=== PATIENT | female | born 1950 | race Caucasian/White ===

== ENCOUNTER 2018-07-30 00:26 | Outpatient (CLI) | payer MEDICARE, BC, SELFPAY ==
--- NOTE | 2018-07-30 13:22 | DI.MAMMO_ITS ---
SYMPTOMS/DIAGNOSIS: SCREENING, Z12.31 MAMMOGRAM: Mammograms were interpreted according to the usual protocol including computer analysis with CAD system, tomosynthesis and C view imaging. The breasts are of moderate density with fairly symmetrical distribution of fibroglandular tissue. No dominant mass or clumped microcalcification is identified in either breast. The current examination is compared with previous examinations including January 2017 and there has been no gross interval change in appearance in comparison with the previous studies. CONCLUSION: No specific evidence of malignancy at this time. Routine screening examinations are suggested at yearly intervals in this age group according to the ACS/ACR guidelines. Category I. Breast density Category B. MQSA ASSESSMENT OF FINDINGS: Negative. Category 1. Patient will receive a letter notifying them of these results. BI-RADS category B. There are scattered areas of fibroglandular density.
== END 2018-07-30 00:46 ==
PROVIDERS: PCP Nurse Practitioner Family; Visit Provider Nurse Practitioner Family
DX: Z12.31 Encounter for screening mammogram for malignant neoplasm of breast (principal)
CPT/HCPCS: 77063; 77067

== ENCOUNTER → 2018-08-02 09:17 | Outpatient (BNVA) | payer MEDICARE, BC, SELFPAY | PROVIDERS: PCP Nurse Practitioner Family; Referring Provider Nurse Practitioner Family; Visit Provider Student in an Organized Health Care Education/Training Program | DX: M75.101 Unspecified rotator cuff tear or rupture of right shoulder, not specified as traumatic (principal) | CPT/HCPCS: 99202 ==

== ENCOUNTER 2021-05-27 16:42 | Outpatient (REF) | payer MEDICARE, SELFPAY ==
[2021-05-27 15:21] LABS: HCT 39.8 % (36.0-46.0); HGB 12.9 g/dL (11.2-15.7); MCH 30.9 pg (27.0-33.0); MCHC 32.4 % (32.0-36.0); MCV 95.2 fL (80-95); MPV 9.3 fL (8.0-11.0); Platelet Count 315 10^3/uL (130-400); RBC 4.18 10^6/uL (3.93-5.22); RDW 12.8 % (11.7-14.6); RDW-SD 45.1 fL; WBC 5.66 10^3/uL (4.4-10.8)
[2021-05-27 15:53] LABS: ALT 32 U/L (14-59); AST 22 U/L (15-37); Anion Gap 9.4 mmol/L (3-11); BUN 16 mg/dL (7-18); CO2 26.6 mmol/L (21.0-32.0); CREATININE 0.9 mg/dL (0.55-1.02); Calcium 9.1 mg/dL (8.5-10.1); Calculated LDL 128 mg/dL (<100); Chloride 104 mmol/L (98-107); Cholesterol 216 mg/dL (<200); Glucose 88 mg/dL (74-106); HDL Cholesterol 74 mg/dL (40-60); Potassium 4.9 mmol/L (3.5-5.1); Sodium 140 mmol/L (136-145); Triglyceride 73 mg/dL (<150)
== END 2021-05-27 16:43 | disposition home or self-care (01) ==
LOC: NCHCN 16:42
PROVIDERS: PCP Nurse Practitioner Family; Visit Provider Nurse Practitioner Family
DX: Z78.0 Asymptomatic menopausal state (principal); K57.90 Diverticulosis of intestine, part unspecified, without perforation or abscess without bleeding; R03.0 Elevated blood-pressure reading, without diagnosis of hypertension; Z13.220 Encounter for screening for lipoid disorders
CPT/HCPCS: 80048; 80061; 85027; 84450; 84460

== ENCOUNTER 2021-07-11 02:16 | Outpatient (CLI) | payer MEDICARE, SELFPAY ==
--- NOTE | 2021-07-11 | DI.MAMMO_ITS ---
Exam(s) MAMMO SCREENING EXAM: MAMMO SCREENING CLINICAL HISTORY: SCREENING, Z12.31 TECHNIQUE: Bilateral full field digital CC and MLO mammographic images were obtained with 3D tomosyn thesis and utilizing computer aided detection (CAD). COMPARISON: Available for comparison. FINDINGS: Masses/Architectural Distortion: None seen. Microcalcifications: No suspicious pleomorphic-type are seen. Skin Thickening/Nipple Retraction: None. IMPRESSION: 1. No significant interval change with no specific features of malignancy noted. 2. Unless there is more urgent need, screening mammography is recommended, as per [employer] guidelines. BI-RADS Category 1 - Negative Breast Density - Category B - Scattered areas of fibroglandular density Breast density category C or D implies that the patient has dense breast tissue. Dense breast tissue is very common and is not abnormal but dense breast tissue can make it harder to find cancer on a ma mmogram. Also, dense breast tissue may increase their breast cancer risk. This information about the result of the mammogram report was provided to the patient to raise their awareness. Use this report when you speak with the patient about their risks for breast cancer, which includes their family hist ory. At that time, you may recommend for more screening tests (Ultrasound or MRI) as they might be us eful based on their risk. A negative radiographic report should not delay biopsy if a dominant or clinically suspicious mass is present. Up to ten percent of cancers are not identified on mammography. A negative report may reinforce clinical impression. Adenosis and dense breasts may obscure an underlying neoplasm. False positive reports average 6 to 10%. Patient will receive a letter notifying them of these results.
--- NOTE | 2021-07-11 | DI.DEXA_ITS ---
Exam(s) XR DEXA BONE DENSITY W/WO JADEN EXAM: XR DEXA BONE DENSITY W/WO JADEN CLINICAL HISTORY: MENOPAUSAL, Z78.0 TECHNIQUE: COMPARISON: Comparison examination is 06/04/2015. FINDINGS: Lateral Spine Image: Unremarkable. No compression deformities identified. Left hip: Total T-Score: 0.6. This compares to 0.8 on the prior examination. Total Z-Score: 2.1 T- and Z-scores: Within normal limits. Lumbar Spine: Total T-Score: -0.7. This compares to -0.8 on the prior examination. Total Z-Score: 1.5 T- and Z-scores: Within normal limits. IMPRESSION: No evidence of osteoporosis in the lumbar spine or left hip.
== END 2021-07-11 02:36 ==
PROVIDERS: PCP Nurse Practitioner Family; Visit Provider Nurse Practitioner Family
DX: Z12.31 Encounter for screening mammogram for malignant neoplasm of breast (principal); Z13.820 Encounter for screening for osteoporosis
CPT/HCPCS: 77063; 77067; 77080

== ENCOUNTER 2023-02-05 16:12 | Outpatient (REF) | payer MEDICARE, SELFPAY ==
[2023-02-05 21:01] LABS: HCT 39.6 % (36.0-46.0); MCHC 32.8 % (32.0-36.0); MCV 92 fL (80-95); MPV 9.3 fL (8.0-11.0); Platelet Count 387 10^3/uL (130-400); RBC 4.33 10^6/uL (3.93-5.22); RDW 12.4 % (11.7-14.6); RDW-SD 41.9 fL; WBC 8.63 10^3/uL (4.4-10.8)
[2023-02-05 21:17] LABS: ALT 26 U/L (14-59); AST 19 U/L (15-37); Albumin 4.1 g/dL (3.4-5.0); Alkaline Phosphatase 80 U/L (46-116); Anion Gap 7.9 mmol/L (3-11); BUN 14 mg/dL (7-18); Bilirubin, Total 0.6 mg/dL (0.2-1.0); CO2 29.1 mmol/L (21.0-32.0); CREATININE 0.8 mg/dL (0.55-1.02); Calcium 10.3 mg/dL (8.5-10.1); Chloride 102 mmol/L (98-107); Estimated GFR 78.24 (mL/min/1.73m2); Glucose 97 mg/dL (74-106); Sodium 139 mmol/L (136-145); Total Protein 7.9 g/dL (6.4-8.2)
== END 2023-02-05 16:13 | disposition home or self-care (01) ==
LOC: NCHCN 16:12
PROVIDERS: PCP Nurse Practitioner Family; Visit Provider Nurse Practitioner Family
DX: Z00.00 Encounter for general adult medical examination without abnormal findings (principal)
CPT/HCPCS: 80053; 85027

== ENCOUNTER → 2023-04-22 02:18 | Outpatient (CLI) | payer MEDICARE, SELFPAY ==
--- NOTE | 2023-04-22 | DI.MAMMO_ITS ---
Exam(s) MAMMO SCREENING EXAM: MAMMO SCREENING CLINICAL HISTORY: SCREENING,Z12.31 TECHNIQUE: Mammograms were interpreted according to the usual protocol including computer analysis w [employer] CAD system, tomosynthesis and C-view imaging. COMPARISON: 2013 through 2021 FINDINGS: The breasts are composed of scattered fibroglandular densities, Breast Density category B. No suspicious masses or suspicious microcalcifications are seen. No skin thickening or abnormal axillary lymph nodes are seen. There has been no significant change from prior exams. IMPRESSION: BI-RADS Category 1, Negative mammogram Yearly screening mammography is recommended. Breast Density - Category B, scattered fibroglandular densities. A negative radiographic report should not delay biopsy if a dominant or clinically suspicious mass is present. Up to ten percent of cancers are not identified on mammography. A negative report may reinforce clinical impression. Adenosis and dense breasts may obscure an underlying neoplasm. False positive reports average 6 to 10%. Patient will receive a letter notifying them of these results.
== END ==
PROVIDERS: PCP Nurse Practitioner Family; Visit Provider Nurse Practitioner Family
DX: Z12.31 Encounter for screening mammogram for malignant neoplasm of breast (principal)
CPT/HCPCS: 77063; 77067

== ENCOUNTER 2024-02-09 16:45 | Outpatient (REF) | payer MEDICARE, SELFPAY ==
[2024-02-09 15:18] LABS: HCT 40.1 % (36.0-46.0); HGB 13.3 g/dL (11.2-15.7); MCH 30.3 pg (27.0-33.0); MCHC 33.2 % (32.0-36.0); MCV 91 fL (80-95); MPV 9.4 fL (8.0-11.0); Platelet Count 382 10^3/uL (130-400); RBC 4.39 10^6/uL (3.93-5.22); RDW 13.3 % (11.7-14.6); RDW-SD 44.9 fL; WBC 6.51 10^3/uL (4.4-10.8)
[2024-02-09 15:56] LABS: ALT 29 U/L (14-59); AST 20 U/L (15-37); Alkaline Phosphatase 86 U/L (46-116); Anion Gap 9.4 mmol/L (3-11); BUN 15 mg/dL (7-18); Bilirubin, Total 0.76 mg/dL (0.2-1.0); CO2 26.6 mmol/L (21.0-32.0); CREATININE 0.8 mg/dL (0.55-1.02); Chloride 105 mmol/L (98-107); Estimated GFR 77.75 (mL/min/1.73m2); Glucose 107 mg/dL (74-106); HDL Cholesterol 81 mg/dL (40-60); Potassium 4.5 mmol/L (3.5-5.1); Sodium 141 mmol/L (136-145); Total Protein 7.6 g/dL (6.4-8.2); Triglyceride 118 mg/dL (<150)
[2024-02-09 16:41] LABS: Calculated LDL 128 mg/dL (<100); Cholesterol 232 mg/dL (<200)
== END 2024-02-09 16:46 | disposition home or self-care (01) ==
LOC: NCHCN 16:45
PROVIDERS: PCP Nurse Practitioner Family; Visit Provider Nurse Practitioner Family
DX: Z13.220 Encounter for screening for lipoid disorders (principal)
CPT/HCPCS: 80053; 80061; 85027

== ENCOUNTER 2024-06-23 01:52 | Outpatient (CLI) | payer MEDICARE, SELFPAY ==
--- NOTE | 2024-06-23 | DI.DEXA_ITS ---
Exam(s) XR DEXA BONE DENSITY W/WO JADEN EXAM: XR DEXA BONE DENSITY W/WO JADEN CLINICAL HISTORY: Z78.0 Asymptomatic menopausal state TECHNIQUE: [employer] C densitometer analysis of left hip, lumbar spine and left forearm. Lat eral survey image of the thoracic and lumbar spine. COMPARISON: DX JADEN from 03/13/2008 DX DEXA BONE DENSITY WITH JADEN from 06/04/2015 CR XR DEXA BONE DENSITY W/WO JADEN from 07/11/2021 FINDINGS: Lateral view of the thoracic and lumbar spine shows no evidence of compression fractures. Bone mineral density measurements of the lumbar spine correspond to a total T-score of -0.9, in the normal range. This is mildly decreased from prior exams, 3.8 percent decrease from baseline. Bone mineral density measurements of the left hip correspond to a total T-score of 0.6, unchanged fr om prior. 7 percent decrease from 2007.. The femoral neck T-score is -0.3, in the normal range.. Theleft forearm bone mineral density measurements correspond to a T-score of the distal 3rd of -2.6, in the osteoporotic range. Slight decrease from prior. 11.1 percent decrease from 2016. The forea rm was not analyzed in 2007. IMPRESSION: Normal bone mineral density of the spine and hip. Osteoporosis of the forearm.
== END 2024-06-23 02:12 ==
LOC: DI 01:53
PROVIDERS: PCP Nurse Practitioner Family; Visit Provider Nurse Practitioner Family
DX: Z78.0 Asymptomatic menopausal state (principal); Z13.820 Encounter for screening for osteoporosis; M81.0 Age-related osteoporosis without current pathological fracture
CPT/HCPCS: 77080

== ENCOUNTER → 2024-08-18 13:21 | Outpatient (BNVA) | payer MEDICARE, SELFPAY | PROVIDERS: PCP Nurse Practitioner Family; Referring Provider Nurse Practitioner Family; Visit Provider Physical Therapy Assistant | DX: Z12.11 Encounter for screening for malignant neoplasm of colon (principal) ==

== ENCOUNTER 2024-09-16 09:02 | Day surgery (SDC) | payer MEDICARE, SELFPAY ==
[2024-09-16] VITALS (22 sets, daily range): BP systolic 104–161; BP diastolic 57–115; PULSE 47–69; RESP 10–22; TEMP 35.8–36.5; O2SAT 97–100; BMI 26.6
[2024-09-16] MEDS: Lactated Ringers 1,000 ML 80 ML IV (10:23)
--- NOTE | 2024-09-16 10:46 | W.ANESPRE ---
General Info Date of Service Date Performed: 09/16/24 Height: 5 ft 3 in Weight: 68.2 kg Body Mass Index (BMI): 26.6 Surgical Procedure: Operation Date: 09/16/24 11:05 Proposed Procedure Side Surgeon p Mina Lopez MD Meds Allergies and Home Medications Allergies Allergy/AdvReac Type Severity Reaction Status Date / Time Penicillins Allergy Intermediate Rash Unverified 09/16/24 10:33 Home Medication ?Medication ?Instructions ?Recorded Vitamin C 500 mg tablet (ascorbic 500 mg PO DAILY 05/09/13 acid (vitamin C)) multivitamin 1 ea PO DAILY 05/09/13 vitamin B complex 1 tab PO DAILY 06/01/13 omega 9-qhx-lad-fish oil 100 1 cap PO DAILY 05/14/23 mg-160 mg-1,000 mg capsule (Fish Oil) turmeric 400 mg capsule 500 mg PO DAILY 06/21/24 bisacodyl 5 mg tablet,delayed 5 mg PO ONCE #4 tabs 08/18/24 release (Dulcolax (bisacodyl)) polyethylene glycol 3350 17 17 g PO ONCE #238 grams 08/18/24 gram/dose oral powder Current Visit Medications: Current Medications Generic Name Dose Route Start Last Admin Trade Name Freq PRN Reason Stop Dose Admin Ringer's Solution 1,000 mls @ 80 mls/hr 09/16/24 06:00 09/16/24 10:23 IV 09/16/24 23:59 80 mls/hr INFUSION NORTH Administration IV Miscellaneous Supplies 1 each 09/16/24 06:00 Iv Access IV 09/16/24 23:59 DIRECTED NORTH Sodium Chloride 0 ml 09/16/24 06:00 Normal Saline Flush 10 Ml Syr IV 09/16/24 23:59 PRN PRN Sodium Chloride 0 ml 09/16/24 06:00 Normal Saline 10 Ml Vial IJ 09/16/24 23:59 DIRECTED PRN Sterile Water 0 ml 09/16/24 06:00 Water,Injection,Sterile 10 Ml Vial IJ 09/16/24 23:59 DIRECTED PRN PFSH Active Problems Active Problems: Problem Status Onset Code Female cystocele Acute N81.10 Right rotator cuff tear Acute M75.101 Colon polyp Acute K63.5 Tinnitus Acute H93.19 Skin lesion of face Acute L98.9 Screening for lipid disorders Acute Z13.220 Elevated blood pressure reading Acute R03.0 Pain in right shoulder Acute M25.511 Left trimalleolar fracture Acute 06/07/13 S82.852A Medical History Medical History Tubular adenoma of colon (~03/29/08) Diverticulosis Cyst Uterine anomaly Surgical History Surgical History History of rotator cuff surgery History of colonoscopy with polypectomy (~03/29/08) Tobacco Smoking/Tobacco Use Status: Former Tobacco Use Alcohol Alcohol Intake: current Alcohol intake frequency: 0-2 drinks per day Alcohol type: beer Substance Use Substance use: Never Substance use type: does not use Prental History History 4 Para Hx # Term Pregnancies 2 Multiple births Hx # Pregnancies Ectopic pregnancies AB induced Hx Number of Living Children AB spontaneous Vital Signs and Lab Results Vital Signs Most Recent Vital Signs in EMR: Most Recent Vital Signs Temp Pulse Resp BP Pulse Ox 36 C L 62 16 135/84 97 09/16/24 09:48 09/16/24 09:48 09/16/24 09:48 09/16/24 09:48 09/16/24 09:48 Lab Results Blood Type / Crossmatch: No Data to Display Complete Blood Count: No Data to Display Complete Metabolic Panel: No Data to Display Liver Function Panel: No Data to Display Coagulation Panel: No Data to Display Cardiac Panel: No Data to Display Arterial Blood Gas: No Data to Display Venous Blood Gas: No Data to Display Pancreas Panel: No Data to Display Thyroid Panel: No Data to Display Infectious Disease: No Data to Display Blood Cultures: No Data to Display Toxicology Panel: No Data to Display Anesthesia Assessment and Plan Anesthesia History Personal History: No History of Anesthesia Complications Family History: No Family History of Anesthesia Complications Exercise Tolerance Exercise Tolerance: Metabolic Equivalents>4 Pertinent Negatives Pertinent Negatives: No Symptoms of GERD, No Major Cardiovascular Symptoms or Complaints and No Major Pulmonary Symptoms or Complaints Cardiac & Pulmonary Exam Cardiac Exam: Normal S1/S2 Heart Sounds Pulmonary Exam: Clear Bilateral Breath Sounds Implantable Cardiac Device Does patient have a Pacemaker or an ICD?: No Airway Exam Known Difficult Airway: No Mallampati Class: 2 Mouth Opening: Normal (> 3cm) Thyromental Distance: Greater than 3 cm Neck Range of Motion: Full ROM Neck Circumference: Normal Teeth Condition: Normal Dentition ASA Classification ASA Score: ASA 2 Emergency Case?: No NPO Status NPO Status: NPO Clears >2 hours, Solids >8 hours Anesthesia Plan Resuscitation Status: Full Code Anesthesia Technique: General Anesthesia Airway Planned: Natural Airway Monitors Used: Standard Monitors
--- NOTE | 2024-09-16 11:33 | BOWEL_PTH ---
PATIENT: Ebony Paris LOC: [facility] U#:[id number] AGE/SX: 74/F ROOM: RE09/16/[address]: Carlos Lopez : 1950 BED: DIS: 09/16/2024 SPEC #: [id number] RECD: 09/16/24 12:32 STATUS: STEPHANIE REQ #: [id number] JOSE: 09/16/24 11:[address]: Carlos Lopez DEPT: Surgical Specimen RECD BY: Haley Millan ENTERED: 09/16/24 12:33 SP TYPE: Bowel OTHR DR: Mayda Yu Tissues: 1 - BIOPSY BOWEL 2 - BIOPSY BOWEL Procedures: GROSS AND MICRO LEVEL 4 Comments: [id number]
--- NOTE | 2024-09-16 12:09 | W.COLOREPORT ---
Date of service: 09/16/24 Time of Service: 12:09 Colonoscopy Report Procedure Description: PROCEDURES PERFORMED: 1. Colonoscopy Hot snare polypectomy x2 2. Ablation/fulguration/destruction of colon polyp 3. Endoscopic clip placement x5 4. Endoscopic submucosal injection PREOPERATIVE DIAGNOSIS: Surveillance colonoscopy POSTOPERATIVE DIAGNOSIS: Pandiverticulosis (severe), colorectal polyps, grade 1 internal hemorrhoids SURGEON: Rosalba Lopez MD INDICATION FOR PROCEDURE: The patient is a 74-year-old woman with no significant risk factors, no symptoms, prior colonoscopy reportedly normal. No family history of colon cancer. FINDINGS: Normal terminal ileum. In the ascending colon a very large, sessile polyp was removed piecemeal. The overall size is approximately 30% of the colon wall. The perimeter mucosa of the polyp was ablated with the tip of the hot snare. When doing this, arterial bleeding was encountered and had to be controlled with 5 endoscopic clips. These clips also reapproximated the large mucosal defect. Submucosal injection of tattoo ink was performed just distal to the polyp site. A second 7-10 mm sessile polyp was removed from the sigmoid colon with hot snare technique. Her entire colon has severe, mattson?diverticulosis. Her sigmoid colon is very tortuous with a corkscrew?twist to it and very fibrotic and difficult to navigate. Grade 1 internal hemorrhoids SURVEILLANCE interval/FOLLOW-UP: She needs to repeat a colonoscopy in 3 months to reassess the polypectomy site in the ascending colon. It is presumed that there will be some residual polyp growth there under most likely circumstances. SPECIMENS: Yes EBL: Minimal COMPLICATIONS: None QUALITY of prep: Excellent Procedure in detail: The patient gave written consent and was in agreement with the indications, the potential risks as well as the benefits of the procedure. They were taken to the endoscopy suite and laid in the left lateral decubitus position. A timeout was performed and anesthesia was administered which was tolerated well. I started the procedure. Digital rectal and visual examination was performed and grossly within normal limits. A well-lubricated flexible colonoscope was then introduced and passed all the way to the cecum identified by the ileocecal valve and the appendiceal orifice. The terminal ileum was briefly, superficially intubated and looked normal. The scope was then slowly withdrawn with the above-noted findings. The patient tolerated the procedure well and was taken to the PACU in hemodynamically stable condition.
--- NOTE | 2024-09-16 12:13 | PDOC.DSDIS_ITS ---
Date of service: 09/16/24 Discharge Plan Disposition Patient Disposition: Home Condition: Good Discharge Details Attending Provider: Carlos Lopez Primary Care Provider: Mayda Yu Home Meds and New Rx's Prescriptions: No Action bisacodyl [Dulcolax (bisacodyl)] 5 mg tablet,delayed release (DR/EC) 5 mg PO ONCE Qty: 4 0RF Rx Instructions: Take per colonoscopy instructions provided by ordering providers office polyethylene glycol 3350 17 gram/dose powder 17 g PO ONCE Qty: 238 0RF Rx Instructions: Take per colonoscopy instructions provided by ordering providers office multivitamin 1 EACH tablet 1 ea PO DAILY ascorbic acid (vitamin C) [Vitamin C] 500 MG tablet 500 mg PO DAILY Fish Oil 100-160-1,000 mg capsule 1 cap PO DAILY turmeric 400 mg capsule 500 mg PO DAILY vitamin B complex 1 EACH capsule 1 tab PO DAILY Discharge Instructions Additional Instructions: FINDINGS: A very large polyp was found and removed from your colon. There is probably still some pieces of it left inside of you. We have to do this because if we ta ke too much at once, it would leave a hole. You need to repeat a colonoscopy in 3 months unfortunately, to reassess this location and remove any more polyp that is still there. You will notice some bleeding in your stools today. If the bleeding does not go away by tomorrow, or if you feel faint or lightheaded or dizzy, you should present to the emergency department. Separately, you have significant diverticular disease for your entire colon. This is a benign condition overall and nothing can be done about it. Activity:: Activity as Tolerated Diet:: As Tolerated
--- NOTE | 2024-09-16 13:09 | W.ANESPOSTOP ---
Postoperative Evaluation Date, Time and Location Date Performed: 09/16/24 Time Performed: 12:57 Patient Location: Day Surgery Unit Vital Signs Most Recent Imported Vital Signs: Most Recent Vital Signs Temp Pulse Resp BP Pulse Ox 35.8 C L 56 L 16 138/89 100 09/16/24 12:40 09/16/24 12:40 09/16/24 12:40 09/16/24 12:40 09/16/24 12:40 Pain Score Most Recent Pain Score: Most Recent Pain Score Pain Level 0 09/16/24 12:40 Assessment Mental Status: Awake (Alert & Oriented to Patient Baseline) Airway and Respiratory Function: Patent airway with normal (patient baseline) respiratory exam Cardiovascular Function: Hemodynamically Stable Hydration Status: Adequately Hydrated Nausea & Vomiting: No Nausea or Vomiting Pain: Pt. Denies Any Pain Peripheral Nerve Block: Patient did not receive a nerve block Postoperative Comments:: Reports no respiratory concerns when evaluated, demonstrated IS use.
== END 2024-09-16 13:31 | disposition home or self-care (01) ==
PROVIDERS: PCP Nurse Practitioner Family; Visit Provider Student in an Organized Health Care Education/Training Program
PROC: 0DJD8ZZ Inspection of Lower Intestinal Tract, Via Natural or Artificial Opening Endoscopic (ICD-10-PCS; CPT 45378; principal; 2024-09-16 11:00)
DX: Z12.11 Encounter for screening for malignant neoplasm of colon (principal); D12.5 Benign neoplasm of sigmoid colon; K64.0 First degree hemorrhoids; K57.30 Diverticulosis of large intestine without perforation or abscess without bleeding; D37.4 Neoplasm of uncertain behavior of colon
CPT/HCPCS: 45388; 45385; 45381; 88305; J2003; J2250; J2405; J2704

== ENCOUNTER 2024-10-19 02:33 | Outpatient (CLI) | payer MEDICARE, SELFPAY ==
--- NOTE | 2024-10-19 | DI.MAMMO_ITS ---
Exam(s) US BREAST RT COMPLETE MAMMO DIAGNOSTIC BI EXAM: MAMMO DIAGNOSTIC BI CLINICAL HISTORY: R BREAST PAIN, MASTODYNIA N64.4. COMPARISON: 2015 through 2023 TECHNIQUE: Craniocaudal and mediolateral oblique Full Field Digital Mammography views of both breasts with Computer Aided Diagnosis followed by Tomosynthesis and right breast ultrasound. FINDINGS: Mammography/Tomosynthesis: Masses: None seen. Architectural Distortion: None seen. Microcalcifications: No suspicious pleomorphic-type are seen. Skin Thickening/Nipple Retraction: None. Right breast US: Echotexture: Normal appearance of the glandular tissue. Shadowing: No suspicious foci. Cyst: None. Solid lesions: None seen. Ductal dilation: None. IMPRESSION: 1. No evidence of malignancy is noted. 2. Unless there is more urgent need, follow-up screening mammography is recommended, as per [employer] [place] [employer] guidelines. BI-RADS Category 1 - Negative Breast Density - Category B - There are scattered areas of fibroglandular density. Breast density Category C or D implies that the patient has dense breast tissue. Dense breast tissue can make it harder to find cancer on a mammogram. Dense breast tissue is also associated with an increased risk of breast cancer. This information about the result of the mammogram report was provided to the patient to raise their awareness. Use this report when you speak with the patient about their risks for breast cancer, which includes their family history. At that time, you may recommend additional screening tests (Ultrasound or MRI) as these tests may add significant information. A negative radiographic report should not delay biopsy if a dominant or clinically suspicious mass is present. Up to ten percent of cancers are not identified on mammography. A negative report may reinforce clinical impression. Adenosis and dense breasts may obscure an underlying neoplasm. False positive reports average 6 to 10%. Patient will receive a letter notifying them of these results.
== END 2024-10-19 02:53 ==
LOC: DI 02:33
PROVIDERS: PCP Nurse Practitioner Family; Visit Provider Nurse Practitioner Family
DX: N64.4 Mastodynia (principal); Z12.31 Encounter for screening mammogram for malignant neoplasm of breast
CPT/HCPCS: 76642; 77062; 77066; G0279

== ENCOUNTER 2024-12-23 07:33 | Day surgery (SDC) | payer MEDICARE, SELFPAY ==
--- NOTE | 2024-12-22 18:11 | W.ANESPRE ---
General Info Date of Service Date Performed: 12/23/24 Height: 5 ft 3 in Weight: 66.224 kg Body Mass Index (BMI): 25.8 Surgical Procedure: Operation Date: 12/23/24 09:05 Proposed Procedure Side Surgeon p Colonoscopy Carlos Lopez MD Meds Allergies and Home Medications Allergies Allergy/AdvReac Type Severity Reaction Status Date / Time Penicillins Allergy Intermediate Rash Verified 12/23/24 07:56 Home Medication ?Medication ?Instructions ?Recorded Vitamin C 500 mg tablet (ascorbic 500 mg PO DAILY 05/09/13 acid (vitamin C)) multivitamin 1 ea PO DAILY 05/09/13 vitamin B complex 1 tab PO DAILY 06/01/13 omega 7-onm-joo-fish oil 100 1 cap PO DAILY 05/14/23 mg-160 mg-1,000 mg capsule (Fish Oil) turmeric 400 mg capsule 500 mg PO DAILY 06/21/24 bisacodyl 5 mg tablet,delayed 5 mg PO ONCE colonscopy bowel prep 11/22/24 release (Dulcolax (bisacodyl)) #8 tabs polyethylene glycol 3350 17 17 g PO ONCE #238 grams 11/22/24 gram/dose oral powder Current Visit Medications: Current Medications Generic Name Dose Route Start Last Admin Trade Name Freq PRN Reason Stop Dose Admin Ringer's Solution 1,000 mls @ 80 mls/hr 12/23/24 06:00 IV 12/23/24 23:59 INFUSION NORTH IV Miscellaneous Supplies 1 each 12/23/24 06:00 Iv Access IV 12/23/24 23:59 DIRECTED NORTH Sodium Chloride 0 ml 12/23/24 06:00 Normal Saline Flush 10 Ml Syr IV 12/23/24 23:59 PRN PRN Sodium Chloride 0 ml 12/23/24 06:00 Normal Saline 10 Ml Vial IJ 12/23/24 23:59 DIRECTED PRN Sterile Water 0 ml 12/23/24 06:00 Water,Injection,Sterile 10 Ml Vial IJ 12/23/24 23:59 DIRECTED PRN PFSH Active Problems Active Problems: Problem Status Onset Code Female cystocele Acute N81.10 Right rotator cuff tear Acute M75.101 Colon polyp Acute K63.5 Tinnitus Acute H93.19 Skin lesion of face Acute L98.9 Screening for lipid disorders Acute Z13.220 Elevated blood pressure reading Acute R03.0 Pain in right shoulder Acute M25.511 Left trimalleolar fracture Acute 06/07/13 S82.852A Medical History Medical History Tubulovillous adenoma polyp of colon (~08/2024) Tubular adenoma of colon (~03/29/08) Diverticulosis Cyst Uterine anomaly Surgical History Surgical History History of ankle surgery plate and screws in situ History of rotator cuff surgery x2 History of colonoscopy with polypectomy (~08/2024) Ablation,fulguration,destruction colon polyp. Endoscopic clip placement x5 and Endoscopic submucosal injection Tobacco Smoking/Tobacco Use Status: Former Tobacco Use Passive smoking exposure: No Alcohol Alcohol Intake: current Alcohol intake frequency: 0-2 drinks per day Alcohol type: beer Substance Use Substance use: Never Substance use type: does not use Prental History History 4 Para Hx # Term Pregnancies 2 Multiple births Hx # Pregnancies Ectopic pregnancies AB induced Hx Number of Living Children AB spontaneous Vital Signs and Lab Results Vital Signs Most Recent Vital Signs in EMR: Temp Pulse Resp BP Pulse Ox 36.4 C L 65 16 139/81 99 12/23/24 07:51 12/23/24 07:51 12/23/24 07:51 12/23/24 07:51 12/23/24 07:51 Anesthesia Assessment and Plan Anesthesia History Personal History: No History of Anesthesia Complications Family History: No Family History of Anesthesia Complications Exercise Tolerance Exercise Tolerance: Metabolic Equivalents>4 Cardiac & Pulmonary Exam Cardiac Exam: Normal S1/S2 Heart Sounds Pulmonary Exam: Clear Bilateral Breath Sounds Implantable Cardiac Device Does patient have a Pacemaker or an ICD?: No Airway Exam Known Difficult Airway: No Mallampati Class: 2 Mouth Opening: Normal (> 3cm) Thyromental Distance: Greater than 3 cm Neck Range of Motion: Full ROM Neck Circumference: Normal Teeth Condition: Normal Dentition ASA Classification ASA Score: ASA 2 Emergency Case?: No NPO Status NPO Status: NPO Clears >2 hours, Solids >8 hours Anesthesia Plan Resuscitation Status: Full Code Anesthesia Technique: General Anesthesia Airway Planned: Natural Airway Monitors Used: Standard Monitors Preoperative Comments:: 74 yo for colo. Sig PMHx: former smoker. Denies major. Previous Anes: - colo, prop, natural airway, suctioned for clear secretions. awoken, given midaz and zofran. States that she had water that morning of this procedure.
[2024-12-23 07:51] VITALS: BP 139/81; PULSE 65; RESP 16; TEMP 36.4; O2SAT 99
--- NOTE | 2024-12-23 08:02 | SCONE_ITS ---
Date of service: 12/23/24 Time of Service: 08:02 Assessment and Plan Assessment and plan (1) Colon polyp: Status: Acute Assessment and plan: 74-year-old woman with large polyp in ascending colon that needs to be reassessed and possibly more resection/ablation performed. We had detailed discussion about expecting to find residual/remaining polyp growth - that is the point of today's procedure, and getting rid of any of it. Overall plan: Colonoscopy History of Present Illness Narrative: Ebony is a 74-year-old woman who had a colonoscopy 3-4 months ago and a tubulovillous adenoma was resected from the ascending colon. It was a very large polyp and there is concern that there will likely be some visible regrowth that needs more ablation today. She is otherwise not having any new symptoms of concern. PFSH All Active Problems Female cystocele (Acute) Right rotator cuff tear (Acute) Colon polyp (Acute) Tinnitus (Acute) Skin lesion of face (Acute) Screening for lipid disorders (Acute) Elevated blood pressure reading (Acute) Pain in right shoulder (Acute) Is scheduled for rotator cuff repair Left trimalleolar fracture (Acute 06/07/13) Medical History Tubulovillous adenoma polyp of colon (~08/2024) Tubular adenoma of colon (~03/29/08) Diverticulosis Cyst Uterine anomaly Surgical History History of ankle surgery plate and screws in situ History of rotator cuff surgery x2 History of colonoscopy with polypectomy (~08/2024) Ablation,fulguration,destruction colon polyp. 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 Sons Paulino and Angel. 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 Good insight and understanding into condition. Chest: Non-labored breathing, no wheezing, no visible shortness of breath. Heart: Regular Results Last Vital Signs Temp 97.5 F L 12/23/24 07:51 Pulse 65 12/23/24 07:51 Resp 16 12/23/24 07:51 BP 139/81 12/23/24 07:51 Pulse Ox 99 12/23/24 07:51
--- NOTE | 2024-12-23 08:04 | COLE_ITS ---
Date of service: 12/23/24 Time of Service: 08:04 Colonoscopy Report Procedure Description: PROCEDURES PERFORMED: 1. Colonoscopy with Hot snare ablation/fulguration/destruction of colon polyp 2. Cold forceps biopsy PREOPERATIVE DIAGNOSIS: ascending colon tubulovillous adenoma, pandi verticulosis POSTOPERATIVE DIAGNOSIS: Same SURGEON: Rosalba Lopez MD INDICATION FOR PROCEDURE: the patient is a 74-year-old woman who had a colonoscopy 3 months ago where a large tubulovillous adenoma was resected from the ascending colon. Repeat colonoscopy indicated to reassess site and ablate/resect any new regrowth. FINDINGS: Polyp: In the ascending colon the prior resection site and tattoo was easily found(it is 2 or 3 folds, probably 5-7 cm distal to the ileocecal valve). There are 3, small, scattered flat islets of polyp regrowth no more than 2-3 mm in size. These are present overlying the prior polypectomy scar and visually appear to be growing out of it. Cold forceps biopsies were used to grab tissue here and then I used the tip of a hot snare and ablated not only the visible regrowth but also the perimeter of the mucosa surrounding it. Again noticed is severe pandiverticulosis without any active inflammation, stricture or stenosis. The sigmoid colon is noticeably redundant and difficult to navigate. SURVEILLANCE interval/FOLLOW-UP: I recommend repeating a colonoscopy in 1 year to make sure there is no re? growth and after that she can probably go 3 years safely. SPECIMENS: Yes EBL: Minimal COMPLICATIONS: None QUALITY of prep: Excellent Procedure in detail: The patient gave written consent and was in agreement with the indications, the potential risks as well as the benefits of the procedure. They were taken to the endoscopy suite and laid in the left lateral decubitus position. A timeout was performed and anesthesia was administered which was tolerated well. I started the procedure. Digital rectal and visual examination was performed and grossly within normal limits. A well-lubricated flexible colonoscope was then introduced and passed all the way into the cecum. The sigmoid colon was technically difficult to navigate due to severe diverticular disease and redundancy. The tattoo is visible as well as the cecum and appendiceal orifice and at this point I carefully assessed the prior polypectomy site with the above?noted interventions. The patient tolerated the procedure well and was taken to the PACU in hemodynamically stable condition.
[2024-12-23] MEDS: Lactated Ringers 1,000 ML 80 ML IV (08:06)
--- NOTE | 2024-12-23 08:06 | W.PM.DSUDISC ---
Date of service: 12/23/24 Discharge Plan Disposition Patient Disposition: Home Condition: Good Discharge Details Attending Provider: Carlos Lopez Primary Care Provider: Mayda Yu Home Meds and New Rx's Prescriptions: No Action multivitamin 1 EACH tablet 1 ea PO DAILY ascorbic acid (vitamin C) [Vitamin C] 500 MG tablet 500 mg PO DAILY Fish Oil 100-160-1,000 mg capsule 1 cap PO DAILY turmeric 400 mg capsule 500 mg PO DAILY bisacodyl [Dulcolax (bisacodyl)] 5 mg tablet,delayed release (DR/EC) 5 mg PO ONCE Qty: 8 0RF Rx Instructions: take per colonoscopy instructions polyethylene glycol 3350 17 gram/dose powder 17 g PO ONCE Qty: 238 0RF Rx Instructions: Take per colonoscopy instructions provided by ordering providers office vitamin B complex 1 EACH capsule 1 tab PO DAILY Discharge Instructions Instructions: Aspiration Pneumonia (DC) Additional Instructions: FINDINGS: The polyp resection site from before was easily found and identified. As expected and anticipated, a very small amount of polyp was indeed growing back in 3 small patches. The small patches were easily destroyed as well as some of the perimeter around them. I am very optimistic they will never grow back. Nonetheless, I recommend repeating another full colonoscopy in 1 year, just to make sure that nothing grows back at that location. This polyp was a very aggressive polyp and while I am confident it is completely destroyed now, it would be prudent to be cautious and ensure that with certainty 1 year from now. Recommend: Repeat colonoscopy in 1 year Stand Alone Forms: Anesthesia Discharge Inst., Colonoscopy Post Instructions, Elva Pool (DSU) Activity:: Activity as Tolerated Diet:: As Tolerated Discharge Orders Discharge Orders: Discharge Order (Routine); Ordered 12/23/24 Ordered By: Carlos Lopez DS: Diagnosis Discharge Diagnosis (1) Colon polyp: Status: Acute
[2024-12-23 08:16] VITALS: BMI 25.8
--- NOTE | 2024-12-23 09:20 | BOWEL_PTH ---
PATIENT: Ebony Paris LOC: [facility] U#:[id number] AGE/SX: 74/F ROOM: RE12/23/[address]: Carlos Lopez : 1950 BED: DIS: 12/23/2024 SPEC #: [id number] RECD: 12/23/24 11:21 STATUS: STEPHANIE RE #: [id number] JOSE: 12/23/24 09:[address]: Carlos Lopez DEPT: Surgical Specimen RECD BY: Roseann Castillo ENTERED: 12/23/24 11:22 SP TYPE: Bowel OTHR DR: Mayda Yu Tissues: 1 - BIOPSY BOWEL Procedures: GROSS AND MICRO LEVEL 4 Comments: [id number]
[2024-12-23 09:39] VITALS: BP 119/65; PULSE 63; RESP 17; TEMP 36.3; O2SAT 97
--- NOTE | 2024-12-23 09:49 | W.ANESPOSTOP ---
Postoperative Evaluation Date, Time and Location Date Performed: 12/23/24 Time Performed: 09:49 Patient Location: Day Surgery Unit Vital Signs Most Recent Imported Vital Signs: Most Recent Vital Signs Temp Pulse Resp BP Pulse Ox 36.3 C L 63 17 119/65 97 12/23/24 09:39 12/23/24 09:39 12/23/24 09:39 12/23/24 09:39 12/23/24 09:39 Pain Score Most Recent Pain Score: Most Recent Pain Score Pain Level 0 12/23/24 09:39 Assessment Mental Status: Awake (Alert & Oriented to Patient Baseline) Airway and Respiratory Function: Patent airway with normal (patient baseline) respiratory exam Cardiovascular Function: Hemodynamically Stable Hydration Status: Adequately Hydrated Nausea & Vomiting: No Nausea or Vomiting Pain: Pt. Denies Any Pain Peripheral Nerve Block: Patient did not receive a nerve block Postoperative Comments:: Discussed events of case. aspiration packet given.
[2024-12-23 10:13] VITALS: BP 134/84; PULSE 66; RESP 17; TEMP 36.2; O2SAT 100
== END 2024-12-23 10:25 | disposition home or self-care (01) ==
PROVIDERS: PCP Nurse Practitioner Family; Visit Provider Student in an Organized Health Care Education/Training Program
PROC: 0DJD8ZZ Inspection of Lower Intestinal Tract, Via Natural or Artificial Opening Endoscopic (ICD-10-PCS; CPT 45378; principal; 2024-12-23 09:00)
DX: D37.4 Neoplasm of uncertain behavior of colon (principal); K57.30 Diverticulosis of large intestine without perforation or abscess without bleeding; D12.6 Benign neoplasm of colon, unspecified
CPT/HCPCS: 45385; 45380; 88305; J2405; J2704

== ENCOUNTER 2025-02-15 10:38 | Outpatient (REF) | payer MEDICARE, SELFPAY ==
[2025-02-15 15:13] LABS: HCT 36.8 % (36.0-46.0); HGB 12.5 g/dL (11.2-15.7); MCH 30.8 pg (27.0-33.0); MCHC 34.0 % (32.0-36.0); MCV 91 fL (80-95); MPV 9.3 fL (8.0-11.0); Platelet Count 351 10^3/uL (130-400); RBC 4.06 10^6/uL (3.93-5.22); RDW 12.4 % (11.7-14.6); RDW-SD 41.1 fL; WBC 6.39 10^3/uL (4.4-10.8)
[2025-02-15 15:21] LABS: ALT 27 U/L (14-59); AST 17 U/L (15-37); Albumin 3.8 g/dL (3.4-5.0); Alkaline Phosphatase 77 U/L (46-116); Anion Gap 10.4 mmol/L (3-11); BUN 8 mg/dL (7-18); Bilirubin, Total 0.8 mg/dL (0.2-1.0); CO2 25.6 mmol/L (21.0-32.0); Calcium 9.1 mg/dL (8.5-10.1); Calculated LDL 123 mg/dL (<100); Chloride 98 mmol/L (98-107); Cholesterol 214 mg/dL (<200); Estimated GFR 90.70 (mL/min/1.73m2); Glucose 97 mg/dL (74-106); HDL Cholesterol 78 mg/dL (>or=50); Potassium 4.3 mmol/L (3.5-5.1); Sodium 134 mmol/L (136-145); Total Protein 7.0 g/dL (6.4-8.2); Triglyceride 66 mg/dL (<150)
== END 2025-02-15 10:39 | disposition home or self-care (01) ==
LOC: NCHCN 10:38
PROVIDERS: PCP Nurse Practitioner Family; Visit Provider Nurse Practitioner Family
DX: Z00.00 Encounter for general adult medical examination without abnormal findings (principal)
CPT/HCPCS: 80053; 80061; 85027